=== PATIENT | male | born 1990 | race African-American/Black ===

== ENCOUNTER 2019-09-25 15:35 | Emergency (ER) | payer SELFPAY ==
--- NOTE | 2019-09-25 16:43 | RAD ---
Left foot 3 views HISTORY: Injury. FINDINGS: Lisfranc joint alignment is anatomic. Loss of plantar arch on the lateral view. No acute fr acture, dislocation, or aggressive osseous erosions are apparent. Associated with the dorsal superficial soft tissues at the lateral aspect of the date toe is an irreg ular shaped metallic object that is 0.2 cm greatest diameter. IMPRESSION : No acute osseous abnormalities are demonstrated. Tiny metallic object associated with the superficial tissues at the the dorsolateral aspect of the bi g toe. Possible embedded foreign body. Pes planus
== END 2019-09-25 17:24 | disposition home or self-care (01) ==
LOC: ERS 15:35
DX: M79.672 Pain in left foot (principal); F17.290 Nicotine dependence, other tobacco product, uncomplicated; W22.8XXA Striking against or struck by other objects, initial encounter

== ENCOUNTER 2020-11-12 10:56 | Emergency (ER) | payer SELFPAY ==
[2020-11-12] MEDS ORDERED: Ondansetron PF 4 MG/2 ML Vial ONE ×2 (11:06→11:16)
[2020-11-12] MEDS ORDERED: Ondansetron ODT 4 MG TAB ONE (11:07)
[2020-11-12] MEDS ORDERED: Famotidine/PF 20 mg/2ml Vial ONE (11:16)
[2020-11-12 11:27] LABS: #Lymphocytes 0.9 thou/uL (1.20-3.40); #Monocytes 0.4 thou/uL (0.11-0.59); #Neutrophils 11.9 thou/uL (1.40-6.50); %Basophils 0.1 % (0.0-1.0); %Eosinophils 0.1 % (0.0-10.0); %Neutrophils 89.9 % (42.0-75.0); Hemoglobin 14.8 g/dL (14.0-18.0); Mean Corpuscular HGB CONC 33.7 g/dL (32.0-36.0); Mean Corpuscular Hemoglobin 32.5 pg (27.0-31.0); Mean Corpuscular Volume 96.6 fL (78.0-98.0); Mean Platelet Volume 10.5 fL (7.4-10.4); Platelet Count 167 thou/uL (130-400); RBC Distribution Width 11.6 % (11.5-14.5); Red Blood Cell (RBC) Count 4.54 mill/uL (4.70-6.10); White Blood Cell (WBC) Count 13.3 thou/uL (4.8-10.8)
[2020-11-12 11:57] LABS: ALT (SGPT) 38 U/L (8-55); AST (SGOT) 28 U/L (5-34); Albumin 4.8 g/dL (3.5-5.0); Alkaline Phosphatase 101 U/L (40-110); Anion Gap 16 mmol/L (10-20); BUN (Urea Nitrogen) 10 mg/dL (8.9-20.6); Bilirubin, Total 0.6 mg/dL (0.2-1.2); Calc. Creatinine Clearance 0 mL/min (70-130); Calcium 9.9 mg/dL (7.8-10.44); Carbon Dioxide 21 mmol/L (22-29); Chloride 103 mmol/L (98-107); Globulin 3.4 g/dL (2.4-3.5); Glucose 114 mg/dL (70-105); Lipase 12 U/L (8-78); Potassium 4.2 mmol/L (3.5-5.1); Protein, Total 8.2 g/dL (6.0-8.3); Sodium 136 mmol/L (136-145)
[2020-11-12 12:30] LABS: Troponin I Less than 0.010 ng/mL (< 0.028)
== END 2020-11-12 13:19 | disposition home or self-care (01) ==
LOC: ERS 10:56
DX: R11.2 Nausea with vomiting, unspecified (principal)
CPT/HCPCS: 80053; 83690; 84484; 85025; 93005; 96374; 96375; J2405; Q0162; S0028

== ENCOUNTER 2022-01-06 14:34 | Emergency (ER) | payer SELFPAY ==
[2022-01-06] MEDS ORDERED: Ketorolac Tromethamine 30 MG/ML VIAL ONE (16:12)
[2022-01-06] MEDS ORDERED: Boostrix 0.5 ML (Tdap) VIAL ONE (16:13)
== END 2022-01-06 16:35 | disposition home or self-care (01) ==
LOC: ERS 14:34
DX: S91.204A Unspecified open wound of right lesser toe(s) with damage to nail, initial encounter (principal); X58.XXXA Exposure to other specified factors, initial encounter
CPT/HCPCS: 90471; 90715; 96372; J1885

== ENCOUNTER 2022-06-28 09:43 | Emergency (ER) | payer SELFPAY ==
[2022-06-28 10:25] LABS: #Eosinphils 0.1 thou/uL (0.0-0.7); #Lymphocytes 1.9 thou/uL (1.20-3.40); #Neutrophils 13.2 thou/uL (1.40-6.50); %Basophils 0.3 % (0.0-1.0); %Eosinophils 0.4 % (0.0-10.0); %Lymphocytes 11.7 % (21.0-51.0); %Neutrophils 81.6 % (42.0-75.0); Hemoglobin 14.8 g/dL (14.0-18.0); Mean Corpuscular HGB CONC 33.7 g/dL (32.0-36.0); Mean Corpuscular Hemoglobin 32.9 pg (27.0-31.0); Mean Corpuscular Volume 97.5 fl (78.0-98.0); Mean Platelet Volume 9.9 fL (7.4-10.4); Platelet Count 206 10x3/uL (130-400); RBC Distribution Width 11.6 % (11.5-14.5); Red Blood Cell (RBC) Count 4.49 mill/uL (4.70-6.10); White Blood Cell (WBC) Count 16.1 10x3/uL (4.8-10.8)
[2022-06-28 10:44] LABS: ALT (SGPT) 33 U/L (8-55); AST (SGOT) 24 U/L (5-34); Albumin 4.5 g/dL (3.5-5.0); Alkaline Phosphatase 83 U/L (40-110); Anion Gap 14 mmol/L (10-20); BUN (Urea Nitrogen) 11 mg/dL (8.9-20.6); Bilirubin, Total 0.3 mg/dL (0.2-1.2); Calc. Creatinine Clearance 0 mL/min (70-130); Calcium 9.4 mg/dL (7.8-10.44); Carbon Dioxide 22 mmol/L (22-29); Chloride 108 mmol/L (98-107); Estimated GFR 94; Globulin 3.1 g/dL (2.4-3.5); Glucose 136 mg/dL (70-105); Potassium 3.8 mmol/L (3.5-5.1); Protein, Total 7.6 g/dL (6.0-8.3); Sodium 140 mmol/L (136-145)
[2022-06-28] MEDS ORDERED: Ondansetron PF 4 MG/2 ML Vial ONE (11:32)
[2022-06-28 11:35] LABS: Bacteria/HPF None Seen HPF (None Seen); Bilirubin Negative (Negative); Blood, Urine Negative (Negative); Clarity Extra Turbid (Clear); Glucose, Urine (Dipstick) 100 mg/dL (Negative); Ketone, Urine Negative (Negative); Leukocyte Negative Leu/uL (Negative); Nitrite Negative (Negative); Protein, Urine (Dipstick) 30 mg/dL (Neg-Trace); RBC/HPF 0-3 HPF (0-3); Specific Gravity, Urine 1.024 (1.002-1.036); Squamous Epithelial None Seen HPF (0-3); Urobilinogen Normal mg/dL (Less than 2); WBC/HPF 0-3 HPF (0-3); pH, Urine 7.5 (5.0-9.0)
[2022-06-28 11:41] LABS: Amphetamine Detected (NotDetected); Barbiturates Screen Not Detected (NotDetected); Benzodiazepine Screen Not Detected (NotDetected); Cocaine Metabolite Screen Not Detected (NotDetected); Methadone Not Detected (NotDetected); Methamphetamine Detected (NotDetected); Opiate Screen Not Detected (NotDetected); Oxycodone Screen Not Detected (NotDetected); Phencyclidine (PCP) Not Detected (NotDetected); THC/Cannabinoid Screen Detected (NotDetected); Tricyclic Screen Not Detected (NotDetected)
[2022-06-28 12:06] LABS: SARS-CoV-2 NAA Rapid Test Not Detected (NotDetected)
[2022-06-28 12:09] LABS: Acetaminophen Less than 10.0 mcg/mL (10.0-30.0); Alcohol Less than 10 mg/dL (Less than 10); Lipase 36 U/L (8-78); Magnesium 1.9 mg/dL (1.6-2.6); Salicylate Less than 8.0 mg/dL (15.0-30.0)
[2022-06-28 14:25] LABS: Troponin I Less than 0.010 ng/mL (< 0.028)
== END 2022-06-28 14:49 | disposition home or self-care (01) ==
LOC: ERS 09:43
DX: F15.10 Other stimulant abuse, uncomplicated (principal); F12.10 Cannabis abuse, uncomplicated; R11.2 Nausea with vomiting, unspecified; Z20.822 Contact with and (suspected) exposure to COVID-19
CPT/HCPCS: 36415; 71045; 80053; 80306; 80307; 81003; 81015; 83690; 83735; 84484; 85025; 93005; 96361; 96374; J2405

== ENCOUNTER 2023-12-28 15:37 | Emergency (ER) | payer SELFPAY ==
[2023-12-28] MEDS ORDERED: Fluorescein Opthalmic Strip ONE (16:42)
== END 2023-12-28 17:10 | disposition home or self-care (01) ==
LOC: ERS 15:37
DX: S05.01XA Injury of conjunctiva and corneal abrasion without foreign body, right eye, initial encounter (principal); W44.9XXA Unspecified foreign body entering into or through a natural orifice, initial encounter
CPT/HCPCS: 99282